=== PATIENT | female | born 1955 | race Caucasian/White ===

== ENCOUNTER → 2021-03-16 09:48 | Outpatient (POV) | payer SELFPAY | PROVIDERS: Visit Provider Dermatology | DX: Z00.00 Encounter for general adult medical examination without abnormal findings (principal) ==

== ENCOUNTER → 2022-10-11 09:06 | Outpatient (POV) | payer MEDICARE, SELFPAY | PROVIDERS: Visit Provider Dermatology | DX: Z00.00 Encounter for general adult medical examination without abnormal findings (principal) ==

== ENCOUNTER 2024-01-30 15:54 | Outpatient (POV) | payer MEDICARE, SELFPAY | END 2024-01-30 23:59 | disposition home or self-care (01) | LOC: SC 15:55 | PROVIDERS: PCP Nurse Practitioner; Visit Provider Dermatology | DX: Z00.00 Encounter for general adult medical examination without abnormal findings (principal) ==